=== PATIENT | female | born 1975 | race Caucasian/White ===

== ENCOUNTER → 2021-09-06 | Outpatient (CLI) | payer SELFPAY ==
--- NOTE | 2021-09-06 13:09 | Diagnostic Imaging Report ---
EXAMINATION: Magnetic resonance imaging of the left elbow without contrast DATE: September 06, 2021. COMPARISON: None. HISTORY: 46-year-old female, left elbow pain in the region of the biceps. Evaluation for distal biceps tendon tear. TECHNIQUE: Magnetic Resonance Imaging sequences were performed of the elbow without contrast. FINDINGS: LIGAMENTS: The anterior band of the medial ulnar collateral ligament complex is intact. There is no evidence to suggest pathology of the posterior band. The lateral ulnar collateral ligament, radial collateral ligament, and annular ligaments are intact. MUSCLES AND TENDONS: The proximal common flexor and common extensor tendons are intact. The distal biceps muscle and tendon and the attachment site at the radial tubercle are intact. The distal brachialis muscle and tendon and its insertion on the ulna are intact. The distal triceps muscle and tendon and the attachment site at the olecranon are intact. JOINTS: The radiocapitellar and ulnotrochlear joints are normally aligned. Cartilage surfaces are congruent. There is no large joint effusion. BONE: The bones all have normal configuration. The bone marrow signal is within normal limits. Specifically, negative for fracture, osteomyelitis, osteonecrosis, or marrow replacing process. SOFT TISSUE: The bursae and soft tissues around the elbow are within normal limits. IMPRESSION: 1. Intact medial and lateral ulnar collateral ligament complexes. 2. Intact distal biceps and additional tendons. 3. Unremarkable intramuscular signal. 4. No acute fracture, bone contusion, or other bone marrow signal abnormality. 5. Unremarkable appearance of the elbow joint. 6. Unremarkable MRI of the left elbow. Dictated by: Dictated on workstation # [id number]
== END ==
LOC: RAD 10:15
PROVIDERS: ATTEND Pediatrics
DX: S46.212D Strain of muscle, fascia and tendon of other parts of biceps, left arm, subsequent encounter (principal); X58.XXXD Exposure to other specified factors, subsequent encounter
CPT/HCPCS: 73218

== ENCOUNTER 2022-04-30 15:13 | Emergency (ER) | payer OTHER ==
[~2022-04-30] VITALS: Ht 163 cm; Wt 87.0 kg
[2022-04-30 15:20] VITALS: BP 145/84
--- NOTE | 2022-04-30 15:57 | ED Lower Extremity ---
General Chief Complaint: Lower Extremity Stated Complaint: L LEFT PAIN / SWELLING Nursing Triage Note: PT STATES LT LEG NUMBNESS AND PAIN FOR ABOUT A WEEK, NO KNOWN CAUSE. Source: patient Exam Limitations: no limitations History of Present Illness Date Seen by Provider: Apr 30, 2022 Time Seen by Provider: 15:42 Initial Comments Patient is a 47-year-old female who presents to the emergency department today with a chief complaint of left leg pain and swelling for about a week. It started at the beginning of last week with numbness that she noted to the lateral knee which extends proximally to the mid thigh and just below the left patella mostly on the lateral aspect of the leg. She does have chronic back pain. Pain in her leg does not seem to be associated with her back. No incontinence of bowel or bladder. No saddle anesthesia. No trauma. She did notice some bruising, ecchymosis/petechiae to the popliteal space a couple of days ago. She does not recall an injury or an insect bite. She states the pain is worse at night to the point she has to get up multiple times at night and walk around which seems to intensify the pain somewhat. Numbness does not extend down to the lower leg or foot. No shortness of breath, cough or chest pain. No nausea or vomiting although she was nauseous with the intensity of the pain a couple of nights ago. She has been taking ibuprofen and Tylenol without relief. She is applied heat without relief. She went to [facility] clinic today and they sent her to the emergency room for further evaluation. No known family history of blood clots other than in a cousin. Father's medical history is unknown secondary to adoption. She is a non-smoker. No recent travel or prolonged immobility. No known cancers. All other review of systems reviewed and negative except as stated. Onset: last week Severity: moderate Pain/Injury Location: left leg, left thigh Method of Injury: unknown Modifying Factors: Worse With Movement Allergies and Home Medications Allergies Coded Allergies: No Known Drug Allergies (Unverified , 04/30/22) Patient Home Medication List Home Medication List Reviewed: Yes No Active Prescriptions or Reported Meds Review of Systems Constitutional: see HPI EENTM: no symptoms reported Respiratory: no symptoms reported Cardiovascular: no symptoms reported Gastrointestinal: no symptoms reported Genitourinary: no symptoms reported Musculoskeletal: joint pain (left posterior knee), other (leg swelling) Skin: other (ecchymoses/rash politeal space on the left) Psychiatric/Neurological: Numbness (left lateral knee and thigh) All Other Systems Reviewed Negative Unless Noted: Yes Past Gtjsteu-Qmfcnd-Cibayr Hx Patient Social History Tobacco Use?: No Substance use?: No Alcohol Use?: No Immunizations Up To Date Second COVID19 Vaccination Henri: 11/09 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 oz. kg; 32.00 BMI Method: General Appearance: WD/WN, no apparent distress HEENT: PERRL/EOMI Cardiovascular: regular rate, rhythm, other (1+ pulses left DP and PT ) Respiratory: lungs clear, normal breath sounds, no respiratory distress, no accessory muscle use Hips: bilateral hip normal range of motion Legs: bilateral leg non-tender, bilateral leg normal inspection, bilateral leg normal range of motion; left leg other (subjective decrease sensation left anterior thigh and lateral knee) Knees: bilateral knee non-tender, bilateral knee normal inspection, bilateral knee normal range of motion (slightly painful ROM left knee); left knee swelling (slight) Ankles: bilateral ankle non-tender, bilateral ankle normal inspection, bilateral ankle normal range of motion, bilateral ankle no evidence of injury; left ankle swelling (slight) Feet: bilateral foot non-tender, bilateral foot normal range of motion, bilateral foot no evidence of injury; left foot swelling (slight) Neurologic/Tendon: normal motor functions, normal tendon functions, sensory deficit (left anterior thigh and lat knee) Neurologic/Psychiatric: no motor/sensory deficits, alert, normal mood/affect, oriented x 3 Skin: normal color, warm/dry, other (patchy area of erythema, raised to the lateral aspect right lower leg. slightly excoriated from scratching.) Progress/Results/Core Measures Results/Orders My Orders Orders - PHILLIP CHIN MD Ketorolac Injection (Toradol Injection) (04/30/22 16:00) Us Venous Lower Ext Lt (04/30/22 15:51) Medications Given in ED Current Medications Medications Dose Ordered Sig/Maxine Route Start Time Stop Time Status Last Admin Dose Admin Ketorolac Tromethamine 30 mg ONCE ONCE IM 04/30/22 16:00 04/30/22 16:01 DC 04/30/22 15:57 30 MG Vital Signs/I&O 04/30/22 15:20 Pulse 67 Resp 18 B/P (MAP) 145/84 (104) Pulse Ox 100 O2 Delivery Room Air Blood Pressure Mean: 104 Diagnostic Imaging Diagonstic Imaging: Ultrasound Comments [facility] [place], [place] NAME: USHA GONZALES [facility] REC#: [id number] PT STATUS: REG ER : 1975 PHYSICIAN: PHILLIP CHIN MD ADMIT DATE: 04/30/22/ER Draft Date of Exam:04/30/22 US VENOUS LOWER EXT LT PROCEDURE: US left lower extremity venous. TECHNIQUE: Multiple real-time grayscale images were obtained over the left lower extremity in various projections. Additional duplex Doppler and color Doppler images were also obtained. INDICATION: Left leg pain and swelling. FINDINGS: Continuous venous flow is present. No intraluminal filling defect is identified. There is normal compressibility and response to augmentation. No abnormal perivascular fluid collection is identified. IMPRESSION: No ultrasound evidence of left lower extremity deep venous thrombosis. Dictated on workstation # [id number] Dict: 04/30/22 1629 Trans: 04/30/22 1633 [id number] Interpreted by: LIBIA ALVARENGA MD Electronically signed by: Departure Impression Primary Impression: Meralgia paresthetica of left side Additional Impression: Dermatitis Disposition: 01 HOME, SELF-CARE Condition: Stable Departure-Patient Inst. Decision time for Depature: 16:48 Referrals: [facility] [place] Patient Instructions: Meralgia Paresthetica Add. Discharge Instructions: Stretching exercises for the groin may help alleviate pain/discomfort in the left thigh. Gabapentin as directed for the next 2 weeks to help with nerve pain. Steroid cream to the rash on the right lower leg twice a day for 3-4 weeks. Return to the Emergency Department for any new, concerning or emergent com plaints. Scripts Gabapentin (Gabapentin) 100 Mg Capsule 100 MG PO Q8H for Neuropathic pain, #30 CAP take 1 pill on day one, 1 pill twice a day on day 2, then 1 pill three times a day after Prov: PHILLIP CHIN MD 04/30/22 Hydrocortisone Valerate (Hydrocortisone Valerate) 0.2 % Cream..g. 15 GM TP BID, #30 GM apply to affected area twice daily for 2-4 weeks Prov: PHILLIP CHIN MD 04/30/22 Copy Copies To 1: SILVESTRE AQUINO KATHRYN M MD Apr 30, 2022 15:57
[2022-04-30] MEDS ORDERED: KETOROLAC 30 MG/ML VIAL IM ONE (16:00)
--- NOTE | 2022-04-30 16:34 | Diagnostic Imaging Report ---
PROCEDURE: US left lower extremity venous. TECHNIQUE: Multiple real-time grayscale images were obtained over the left lower extremity in various projections. Additional duplex Doppler and color Doppler images were also obtained. INDICATION: Left leg pain and swelling. FINDINGS: Continuous venous flow is present. No intraluminal filling defect is identified. There is normal compressibility and response to augmentation. No abnormal perivascular fluid collection is identified. IMPRESSION: No ultrasound evidence of left lower extremity deep venous thrombosis. Dictated by: Dictated on workstation # [id number]
[2022-04-30] MEDS ORDERED: GABA-486 PO (16:57)
[2022-04-30] MEDS ORDERED: HYDR15CR36 TP (16:57)
== END 2022-04-30 17:20 | disposition home or self-care (01) ==
LOC: EDUNIT# 15:13 → ER 15:14
DX: G57.12 Meralgia paresthetica, left lower limb (principal); L30.9 Dermatitis, unspecified

== ENCOUNTER → 2022-06-08 | Outpatient (CLI) | payer OTHER ==
[~2022-06-08] MED LIST: GABA-486 PO; HYDR15CR36 TP
--- NOTE | 2022-06-08 15:07 | Diagnostic Imaging Report ---
PROCEDURE: MRI lumbar spine. TECHNIQUE: Multiplanar, multisequence MRI of the lumbar spine was performed without contrast. INDICATION: Left leg radiculopathy. Numbness. COMPARISON: None. FINDINGS: Alignment of the lumbar spine appears normal. There is no spondylolisthesis. Vertebral body heights are preserved. Disc heights are preserved. No acute fracture is seen. The conus terminates in appropriate position. Soft tissues about the lumbar spine demonstrate no acute abnormality. There is no significant disc bulge in the lumbar spine. There is no significant spinal canal or foraminal stenosis. IMPRESSION: Normal MRI of the lumbar spine. Dictated by: Dictated on workstation # [id number]
== END ==
LOC: RAD 09:01
PROVIDERS: ATTEND Nurse Practitioner
DX: M54.16 Radiculopathy, lumbar region (principal)
CPT/HCPCS: 72148

== ENCOUNTER → 2023-06-17 | Outpatient (CLI) | payer OTHER ==
[~2023-06-17] VITALS: Ht 162.6 cm; Wt 72.7 kg
[~2023-06-17] MED LIST changes: +GADOTERATE 0.5 MMOL/ML (CLARISCAN) 15 ML VIAL IV ONE; -HYDR15CR36 TP; +HYDR15CR40 TP; +IOHEXOL 300 MG/ML 50 ML (OMNIPAQUE 300) VIAL IV ONE; +LIDOCAINE 1% INJ 10 ML VIAL INJ ONE
--- NOTE | 2023-06-17 10:03 | Diagnostic Imaging Report ---
INDICATION: Left shoulder pain and injury. Patient presents for left shoulder injection prior to MRI. FINDINGS: The patient was brought to the procedure room and placed on the table in the supine position. The left shoulder was prepped and draped in the usual sterile fashion. A small amount of 1% lidocaine was utilized for local anesthesia. A 22-gauge needle was advanced into the left shoulder at the rotator interval. A 15 mL solution of iodinated contrast, normal saline, and gadolinium was injected under fluoroscopic observation. A total of 11 seconds of fluoroscopic time was utilized. Cumulative dose is 19.2 mGy. Three images were obtained. IMPRESSION: Successful left shoulder injection of a gadolinium contrast solution using fluoroscopy. Dictated by: Dictated on workstation # [id number]
--- NOTE | 2023-06-17 10:40 | Diagnostic Imaging Report ---
EXAMINATION: Magnetic resonance imaging of the left shoulder with intra-articular contrast. DATE: June 17, 2023. COMPARISON: Left shoulder arthrogram June 17, 2023. HISTORY: 48-year-old female, left shoulder pain. Evaluation for a superior labral tear. TECHNIQUE: Magnetic Resonance Imaging sequences were performed of the shoulder following the intra-articular administration of contrast. FINDINGS: ROTATOR CUFF, LIGAMENTS, TENDONS, AND MUSCLES: The supraspinatus, infraspinatus, teres minor, and subscapularis tendons and muscles are intact. There is normal rotator cuff muscle bulk and signal. LONG HEAD OF BICEPS: The biceps labral attachment and long head of the biceps tendon is intact. The long head of the biceps tendon is normally positioned within the bicipital groove. GLENOHUMERAL JOINT: The humeral head is well positioned relative to the glenoid. There is a normal variant sub-labral sulcus. The labrum is intact. There is no identified paralabral cyst. The articular cartilage is grossly intact. There is no identified intra-articular body or prominent synovitis. ACROMIOCLAVICULAR JOINT: The acromioclavicular joint is normally aligned. The coracoclavicular and coracoacromial ligaments are intact. There are no degenerative changes of the acromioclavicular joint. BONE: There is no os acromiale. There is no Hill-Sachs deformity. There is no acute fracture, bone contusion, or evidence of osteonecrosis. BURSAE AND SOFT TISSUES: The bursae and soft tissue surrounding the shoulder are unremarkable. IMPRESSION: 1. Intact labrum and unremarkable additional glenohumeral joint assessment. 2. Intact rotator cuff and proximal long head of biceps tendon. 3. Intact acromioclavicular joint. 4. No acute fracture, bone contusion, or other notable bone marrow signal abnormality. 5. Unremarkable MRI arthrogram of the left shoulder. Dictated by: Dictated on workstation # [id number]
== END ==
LOC: RAD 08:19
PROVIDERS: ATTEND Nurse Practitioner
DX: S43.432A Superior glenoid labrum lesion of left shoulder, initial encounter (principal); M75.42 Impingement syndrome of left shoulder
CPT/HCPCS: 23350; 73040; 73222

== ENCOUNTER 2023-06-27 09:17 | Emergency (ER) | payer OTHER ==
[~2023-06-27] VITALS: Ht 162 cm; Wt 70.0 kg
[~2023-06-27 09:17] MED LIST changes: -GADOTERATE 0.5 MMOL/ML (CLARISCAN) 15 ML VIAL IV ONE; -IOHEXOL 300 MG/ML 50 ML (OMNIPAQUE 300) VIAL IV ONE; -LIDOCAINE 1% INJ 10 ML VIAL INJ ONE
[2023-06-27 10:22] LABS: BASOPHILS # (AUTO) 0.1 10^3/uL (0.0-0.1); BASOPHILS % (AUTO) 1 % (0-10); EOSINOPHILS # (AUTO) 0.1 10^3/uL (0.0-0.3); EOSINOPHILS % (AUTO) 1 % (0-10); HEMATOCRIT 47 % (35-52); HEMOGLOBIN 16.1 g/dL (11.5-16.0); LYMPHOCYTES # (AUTO) 3.2 10^3/uL (1.0-4.0); LYMPHOCYTES % (AUTO) 22 % (12-44); MEAN CORPUSCULAR HEMOGLOBIN 31 pg (25-34); MEAN CORPUSCULAR HGB CONC 34 g/dL (32-36); MEAN CORPUSCULAR VOLUME 90 fL (80-99); MEAN PLATELET VOLUME 9.5 fL (9.0-12.2); MONOCYTES # (AUTO) 1.1 10^3/uL (0.0-1.0); MONOCYTES % (AUTO) 8 % (0-12); NEUTROPHILS # (AUTO) 9.8 10^3/uL (1.8-7.8); NEUTROPHILS % (AUTO) 68 % (42-75); PLATELET COUNT 351 10^3/uL (130-400); WHITE BLOOD COUNT 14.4 10^3/uL (4.3-11.0)
--- NOTE | 2023-06-27 10:23 | ED Abdominal Pain ---
General Chief Complaint: Abdominal/GI Problems Stated Complaint: ABD PAIN Nursing Triage Note: Patient reports L sided abd pain and vomiting today. Patient reports diarrhea and abd pain after eating x1 month but reports pain is more constant for last couple days. Patient c/o constipation today instead of the diarrhea she has been experiencing. History of Present Illness Date Seen by Provider: Jun 27, 2023 Time Seen by Provider: 10:00 Initial Comments 48 YO female with PMH of fatty liver disease and diverticulosis presents to ED c/o left sided abdominal pain. Pt reports she has experienced intermittent N/V/D and left sided abdominal pain for 1 month, however her pain worsened over the last week and is at its worse today. She is no longer having diarrhea, but is now constipated. Her last bowel movement was x 4 days ago. States she vomited x 2 this morning and has intermittent "sulfur" burps. She has taken pepto bismol with minimal relief. Denies melena, hematochezia, fever, chills, chest pain, cough, urinary symptoms, vaginal d/c, vaginal bleeding, or any other acute sx. PSH includes hysterectomy, appendectomy, and cholecystectomy. Timing/Duration: Getting Worse, Other (1 month) Severity/Quality: Moderate Location: LUQ, LLQ Radiation: No Radiation Activities at Onset: Rest Modifying Factors: Improves With Eating Associated Symptoms: No Back Pain, No Chest Pain, No Diaphoresis, No Fever/Chills, No Headache, No Heartburn; Nausea/Vomiting; No Rash, No Shortness of Air, No Syncope, No Weakness Allergies and Home Medications Allergies Coded Allergies: acetaminophen (Verified Adverse Reaction, Unknown, 06/27/23) not allergic, not supposed to take due to enlarged liver Patient Home Medication List Home Medication List Reviewed: Yes Gabapentin (Gabapentin) 100 Mg Capsule, 100 MG PO Q8H Prescribed by: PHILLIP CHIN on 04/30/221656 Hydrocortisone Valerate (Hydrocortisone Valerate) 0.2 % Cream..g., 15 GM TP BID Prescribed by: PHILLIP CHIN on 04/30/221656 Review of Systems Review of Systems Constitutional: chills; No diaphoresis, No fever, No weakness EENTM: No Blurred Vision, No Double Vision Respiratory: Denies Cough, Denies Shortness of Air Cardiovascular: Denies Chest Pain, Denies Edema Gastrointestinal: Denies Abdomen Distended; Abdominal Pain; Denies Blood Streaked Stools; Constipated; Denies Diarrhea, Denies Difficulty Swallowing; Nausea, Vomiting Genitourinary: Denies Burning, Denies Discharge, Denies Drainage, Denies Frequency, Denies Flank Pain, Denies Hematuria, Denies Urgency Musculoskeletal: No back pain Skin: No pruritus, No rash Psychiatric/Neurological: Denies Headache, Denies Numbness Endocrine: No Symptoms Reported Hematologic/Lymphatic: No Symptoms Reported All Other Systems Reviewed Negative Unless Noted: Yes Past Zelapud-Wwozii-Orxsgj Hx Patient Social History Tobacco Use?: No Substance use?: No Pt feels they are or have been: No Immunizations Up To Date First/Initial COVID19 Vaccinat: 11/09 Second COVID19 Vaccination Henri: 11/09 Third COVID19 Vaccination Date: 11/09 Past Medical History Surgery/Hospitalization HX: HYSTERECTOMY, APPENDIX, GALLBLADDER, reports enlarged liver Physical Exam Vital Signs Vital Signs - First Documented 06/27/23 09:48 Temp 35.9 Pulse 94 Resp 18 B/P (MAP) 133/81 (98) Pulse Ox 97 O2 Delivery Room Air Capillary Refill : Less Than 3 Seconds Height/Weight/BMI Height: '" Weight: lbs. oz. kg; 26.00 BMI Method: General Appearance: WD/WN, no apparent distress HEENT: PERRL/EOMI; No scleral icterus (R), No scleral icterus (L), No pale conjunctivae (R), No pale conjunctivae (L) Neck: non-tender, full range of motion, supple Respiratory: chest non-tender, lungs clear, normal breath sounds, no respiratory distress, no accessory muscle use; No respiratory distress Cardiovascular: normal peripheral pulses, regular rate, rhythm, no edema, no gallop, no JVD, no murmur Peripheral Pulses: 2+ Dorsalis Pedis (R), 2+ Left Dors-Pedis (L), 2+ Radial Pulses (R), 2+ Radial Pulses (L) Gastrointestinal: normal bowel sounds, soft, no organomegaly, no pulsatile mass; No distended, No guarding, No rebound; tenderness (moderate tenderness to palpation of left upper and lower quadrants. No rebound, guarding, or peritoneal signs. ); No mass Extremities: normal range of motion, non-tender, normal inspection, no pedal edema, no calf tenderness, normal capillary refill; No calf tenderness Back: normal inspection, no CVA tenderness, no vertebral tenderness Neurologic/Psychiatric: no motor/sensory deficits, alert, normal mood/affect, oriented x 3 Skin: normal color, warm/dry Lymphatic: no adenopathy Progress/Results/Core Measures Results/Orders Lab Results Laboratory Tests Test 06/27/23 10:08 06/27/23 10:40 Range/Units White Blood Count 14.4 H 4.3-11.0 10^3/uL Red Blood Count 5.21 H 3.80-5.11 10^6/uL Hemoglobin 16.1 H 11.5-16.0 g/dL Hematocrit 47 35-52 % Mean Corpuscular Volume 90 80-99 fL Mean Corpuscular Hemoglobin 31 25-34 pg Mean Corpuscular Hemoglobin Concent 34 32-36 g/dL Red Cell Distribution Width 12.4 10.0-14.5 % Platelet Count 351 130-400 10^3/uL Mean Platelet Volume 9.5 9.0-12.2 fL Immature Granulocyte % (Auto) 1 % Neutrophils (%) (Auto) 68 42-75 % Lymphocytes (%) (Auto) 22 12-44 % Monocytes (%) (Auto) 8 0-12 % Eosinophils (%) (Auto) 1 0-10 % Basophils (%) (Auto) 1 0-10 % Neutrophils # (Auto) 9.8 H 1.8-7.8 10^3/uL Lymphocytes # (Auto) 3.2 1.0-4.0 10^3/uL Monocytes # (Auto) 1.1 H 0.0-1.0 10^3/uL Eosinophils # (Auto) 0.1 0.0-0.3 10^3/uL Basophils # (Auto) 0.1 0.0-0.1 10^3/uL Immature Granulocyte # (Auto) 0.2 H 0.0-0.1 10^3/uL Neutrophils % (Manual) 71 % Lymphocytes % (Manual) 22 % Monocytes % (Manual) 5 % Eosinophils % (Manual) 0 % Basophils % (Manual) 0 % Band Neutrophils 2 % Blood Morphology Comment NORMAL Sodium Level 138 135-145 MMOL/L Potassium Level 3.9 3.6-5.0 MMOL/L Chloride Level 106 98-107 MMOL/L Carbon Dioxide Level 21 21-32 MMOL/L Anion Gap 11 5-14 MMOL/L Blood Urea Nitrogen 11 7-18 MG/DL Creatinine 0.77 0.60-1.30 MG/DL Estimat Glomerular Filtration Rate 96 BUN/Creatinine Ratio 14 Glucose Level 89 70-105 MG/DL Calcium Level 9.6 8.5-10.1 MG/DL Corrected Calcium 8.5-10.1 MG/DL Total Bilirubin 0.5 0.1-1.0 MG/DL Aspartate Amino Transf (AST/SGOT) 18 5-34 U/L Alanine Aminotransferase (ALT/SGPT) 17 0-55 U/L Alkaline Phosphatase 83 40-136 U/L Total Protein 8.1 6.4-8.2 GM/DL Albumin 4.6 H 3.2-4.5 GM/DL Lipase 23 8-78 U/L Urine Color YELLOW Urine Clarity CLEAR Urine pH 5.0 5-9 Urine Specific [place] >=1.030 1.016-1.022 Urine Protein TRACE NEGATIVE Urine Glucose (UA) NEGATIVE NEGATIVE Urine Ketones TRACE H NEGATIVE Urine Nitrite NEGATIVE NEGATIVE Urine Bilirubin 1+ H NEGATIVE Urine Urobilinogen 0.2 < = 1.0 MG/DL Urine Leukocyte Esterase NEGATIVE NEGATIVE Urine RBC (Auto) NEGATIVE NEGATIVE Urine RBC NONE /HPF Urine WBC 2-5 /HPF Urine Squamous Epithelial Cells 5-10 /HPF Urine Crystals NONE /LPF Urine Bacteria TRACE /HPF Urine Casts NONE /LPF Urine Mucus SMALL H /LPF Urine Culture Indicated YES Medications Given in ED Current Medications Medications Dose Ordered Sig/Maxine Route Start Time Stop Time Status Last Admin Dose Admin Iohexol 100 ml ONCE ONCE IV 06/27/23 11:15 06/27/23 11:16 DC 06/27/23 11:18 80 ML Ketorolac Tromethamine 15 mg ONCE ONCE IVP 06/27/23 10:30 06/27/23 10:31 DC 06/27/23 10:38 15 MG Sodium Chloride 100 ml ONCE ONCE IV 06/27/23 11:15 06/27/23 11:16 DC 06/27/23 11:18 80 ML Vital Signs/I&O 06/27/23 09:48 Temp 35.9 Pulse 94 Resp 18 B/P (MAP) 133/81 (98) Pulse Ox 97 O2 Delivery Room Air Blood Pressure Mean: 98 Progress Progress Note : Time: 10:31 Progress Note 48 YO female presented with worsening left upper and lower quadrant pain for x 1 month. Pt is afebrile with vital signs requiring no immediate intervention. Exam is remarkable for moderate tenderness to palpation of LUQ and LLQ, no rebound or guarding. No hepatomegaly. No evidence of peritonitis. Heart and lung exam unremarkable. DDx includes diverticulitis, diverticulosis, pancreatitis, viral gastroenteritis, medication related, UTI, gastritis vs others. Low suspicion for appendicitis or cholecystitis as she had appendectomy and cholecystectomy. Low suspicion for UTI as she has no urinary symptoms, fever, or frequency. Unlikely to be atypical ACS as she has no chest pain, no shortness of breath or history of heart conditions. She also does not smoke, have HTN, or any other risk factors. Considered medication reaction, however unlikely as she has had a gradual increased dosage of Victoza, due to insulin-resistance. Plan to obtain CBC, CMP, lipase, UA, and CT abd/pelvis. Will provide 15 mg toradol for analgesia. Labs: Leukocytosis of 14.4 with left shift. Hemoglobin 16.1. Electrolytes within normal limits. Lipase negative. UA was negative for leuk esterase or nitrites, with minimal WBC. Imaging: CT showed no acute abnormality, no evidence of bowel obstruciton, inflammation, or abscess. Reeval: 1205 - Pt resting comfortably, states her pain and nausea have improved. Updated her on findings showing no evidence of diverticulitis, pelvic dysfunction, or any other emergent cause for her N/V and pain. Will dismiss home with zofran and analgesia. She has an appointment with her PCP next week. She is agreeable with plan of care and stable for d/c. Departure Departure-Patient Inst. Referrals: [facility] (PCP/Family) Primary Care Physician CATIA LOYD Jun 27, 2023 10:23
[2023-06-27] MEDS ORDERED: KETOROLAC INJ 15 MG/ML VIAL IVP ONE (10:30)
[2023-06-27 10:39] LABS: BAND NEUTROPHILS 2 %; BASOPHILS % (MANUAL) 0 %; EOSINOPHILS % (MANUAL) 0 %; LYMPHOCYTES % (MANUAL) 22 %; MONOCYTES % (MANUAL) 5 %; NEUTROPHILS % (MANUAL) 71 %
[2023-06-27 10:40] LABS: RBC MORPH NORMAL
[2023-06-27 11:02] LABS: ALANINE AMINOTRANSFERASE 17 U/L (0-55); ALBUMIN 4.6 GM/DL (3.2-4.5); ALKALINE PHOSPHATASE 83 U/L (40-136); BILIRUBIN,TOTAL 0.5 MG/DL (0.1-1.0); BUN/CREATININE RATIO 14; CALCIUM 9.6 MG/DL (8.5-10.1); CARBON DIOXIDE 21 MMOL/L (21-32); CHLORIDE 106 MMOL/L (98-107); CREATININE SERUM 0.77 MG/DL (0.60-1.30); GFR ESTIMATED 96; GLUCOSE 89 MG/DL (70-105); LIPASE 23 U/L (8-78); POTASSIUM 3.9 MMOL/L (3.6-5.0); SODIUM 138 MMOL/L (135-145); TOTAL PROTEIN 8.1 GM/DL (6.4-8.2)
[2023-06-27 11:03] LABS: CLARITY,URINE CLEAR; COLOR,URINE YELLOW; GLUCOSE, URINE (UA) NEGATIVE (NEGATIVE); KETONES,URINE TRACE (NEGATIVE); NITRITE,URINE NEGATIVE (NEGATIVE); PROTEIN,URINE TRACE (NEGATIVE)
[2023-06-27 11:04] LABS: BACTERIA,URINE TRACE /HPF; BILIRUBIN,URINE 1+ (NEGATIVE); LEUKOCYTE ESTERASE ,URINE NEGATIVE (NEGATIVE)
[2023-06-27] MEDS ORDERED: IOHEXOL 350 MG/ML 100 ML (OMNIPAQUE 350) VIAL IV ONE (11:15)
[2023-06-27] MEDS ORDERED: NS 100 ML (IVPB) BAG IV ONE (11:15)
--- NOTE | 2023-06-27 11:32 | Diagnostic Imaging Report ---
PROCEDURE: CT abdomen and pelvis with contrast. TECHNIQUE: Multiple contiguous axial images were obtained through the abdomen and pelvis after administration of intravenous contrast. Auto Exposure Controls were utilized during the CT exam to meet ALARA standards for radiation dose reduction. All CT scans use one or more of the following dose optimizing techniques: automated exposure control, MA and/or KvP adjustment based on patient size and exam type or iterative reconstruction. INDICATION: Left abdominal pain, emesis with diarrhea. The gallbladder is surgically absent. No focal hepatic, pancreatic, adrenal gland or splenic abnormality is identified. There is mild prominence of the biliary tree which may be due to reservoir effect. Kidneys are unremarkable. There is no free fluid. No pathologically enlarged adenopathy is seen. Mild diffuse colonic stool content is present. There is mild fluid in the small bowel. There is no evidence of obstruction. No organized fluid collection is seen. IMPRESSION: No acute abnormality. In particular, there is no evidence of bowel obstruction, abscess or inflammation. Dictated by: Dictated on workstation # [id number]
[2023-06-27] MEDS ORDERED: KETO10TA PO (12:13)
[2023-06-27] MEDS ORDERED: ONDA8TAB13 SL (12:13)
[2023-06-27 12:21] VITALS: BP 124/76
== END 2023-06-27 12:21 | disposition home or self-care (01) ==
LOC: EDUNIT# 09:17 → ER 09:19
DX: R10.12 Left upper quadrant pain (principal); R10.32 Left lower quadrant pain; Z90.49 Acquired absence of other specified parts of digestive tract
CPT/HCPCS: 36415; 74177; 80053; 81000; 83690; 85007; 85027; 87088; 96374